=== PATIENT | female | born 1955 | race Caucasian/White ===

== ENCOUNTER → 2018-03-12 | Outpatient (CLI) | payer MEDICARE, BC, OTHER ==
--- NOTE | 2018-03-12 08:17 | CT ---
EXAMINATION TYPE: CT chest wo con DATE OF EXAM: 03/12/2018 COMPARISON: NONE HISTORY: Lung cancer CT DLP: 493 mGycm. Automated Exposure Control for Dose Reduction was Utilized. TECHNIQUE: CT scan of the thorax is performed without IV contrast. FINDINGS: LUNGS: There is mild centrilobular emphysema. Subsolid pleural-based 5 mm pulmonary nodule seen withi n the posterior lateral right lung apex on image 14. There is been a partial lobectomy on the left wi th compensatory hyperexpansion of the right lung and volume loss of the left hemithorax. Very minimal focal pleural thickening is seen on image 40 in the lingula measuring 3 mm in greatest thickness, li varghese postoperative change.. Linear pleural parenchymal scarring is noted at the left lung base. Left- sided thoracotomy changes are noted with healed rib fractures. Surgical sutures about the left medias tinal border. The lungs are grossly clear, there is no concerning parenchymal mass or nodule identifi ed. There is no pleural effusion or pneumothorax seen. The tracheobronchial tree is patent. MEDIASTINUM: Lack of IV contrast is noted to limit evaluation for mediastinal and especially hilar ad enopathy. There are no definitive greater than 1 cm hilar or mediastinal lymph nodes. No cardiomega ly or pericardial effusion is seen. Ascending thoracic aorta is within normal limits of size measurin g 3.0 cm. OTHER: Unenhanced viscera of the upper abdomen appear grossly unremarkable in morphology and the limi asad visualized portions mild multilevel degenerative changes of the thoracic spine are noted. IMPRESSION: Solitary groundglass right apical subpleural pulmonary nodule measuring 5 mm. Given the c omposition this could relate to atelectasis, pneumonitis or developing pulmonary nodule. Surveillance is recommended in this high-risk patient. No other suspicious pulmonary nodules nor mediastinal apolinar opathy.
== END | disposition home or self-care (01) ==
LOC: RADCTMAIN 07:09
PROVIDERS: ATTEND Internal Medicine Hematology & Oncology
DX: C34.12 Malignant neoplasm of upper lobe, left bronchus or lung (principal); R91.1 Solitary pulmonary nodule
CPT/HCPCS: 71250

== ENCOUNTER 2023-11-20 11:01 | Day surgery (SDC) | payer MEDICARE, BC, OTHER ==
[2023-11-18 15:15] VITALS: BMI 29.2
[~2023-11-20 11:01] MED LIST: SODIUM CHLORIDE 0.9% 1,000 ML IV SCH
[2023-11-20] MEDS: IV FLUID CONTINUATION 1,000 ML IV ONE (11:18)
[2023-11-20 11:23] VITALS: BP 154/71; PULSE 88; RESP 16; TEMP 98.4
[2023-11-20 11:31] LABS: Glucose,Whole Blood 98 mg/dL (70-110)
--- NOTE | 2023-11-20 15:12 | P.EPPROC ---
- EP Procedure Note Electrophysiology Procedure Note: Diagnosis Recurrent presyncope 12 EKG Sinus rhythm normal WA narrow QRS, normal QT interval Tilt table test per protocol Baseline blood pressure 131/66 mmHg baseline heart rate 81 beats a minute Patient was tilted upright at an angle of 70 degrees per protocol No significant change in heart rate or blood pressure She complained of being a little foggy off-and-on No changes noted She felt hot in the upper back but the heart rate and blood pressure were normal She was laid supine the end of the procedure Impression Normal twelve-lead EKG Normal heart rate and blood pressure response to upright tilting
== END 2023-11-20 14:53 | disposition home or self-care (01) ==
LOC: CATHEP 11:01
PROVIDERS: ATTEND Internal Medicine Clinical Cardiac Electrophysiology
DX: R55 Syncope and collapse (principal)
CPT/HCPCS: 93660